=== PATIENT | male | born 1950 | race Caucasian/White ===

== ENCOUNTER → 2022-08-17 08:39 | Outpatient (CLI) | payer OTHER, SELFPAY ==
--- NOTE | 2022-08-17 | DI.CT.S_ITS ---
PROCEDURE: CT KIDNEY URETER BLADDER (KUB) INDICATIONS: HISTORY OF KIDNEY STONES/RIGHT FLANK PAIN TECHNIQUE: Axial sections were acquired from the lung bases to the pubic symphysis. Coronal and sagittal reformats were performed. For radiation dose reduction, the following was used: automated exposure control, adjustment of mA and/or kV according to patient size. COMPARISON: [facility], CT, KIDNEY/ URETER/BLADDER, 09/13/2009, 21:58. [facility] ([place]), CR, XR KUB, 08/04/2022, 11:14. FINDINGS: Image quality: Excellent. Lung bases: Unremarkable. Small hiatal hernia. Heart: There is a cardiac pacemaker. URINARY: Right Kidney: Less than 5 stones measuring up to 2 mm. No hydronephrosis. Right Ureter: No ureteral stones or hydroureter. Left Kidney: Approximately 5-6 stones are seen measuring 1-4 mm. The largest stone demonstrates CT density 311 HU. There is a 1.5 cm exophytic hyperedense nodule in left kidney. Left Ureter: No ureteral stones or hydroureter. Bladder: Normal wall thickness. No stones. ABDOMEN: Liver: Normal size. Mild hepatic steatosis. There are multiple hypodense nodules in liver. The larger lesions are most likely cysts. Many small lesions are too small to further characterize, therefore, considered indeterminate. The nodules are increased in number and size since the last exam dated 09/13/2009. Gallbladder: Unremarkable. Biliary ducts: Unremarkable. Pancreas: Unremarkable. Spleen: Unremarkable. Adrenal Glands: Unremarkable. Stomach and Bowel: Stomach, small bowel loops, and colon are normal in caliber. Diverticulosis without acute diverticulitis. Normal appendix. Peritoneum: No abnormal intraperitoneal fluid. No free air. Ventral Wall: No hernia. Abdominal Nodes: No enlarged retroperitoneal or mesenteric lymph nodes. Vessels: Aorta and inferior vena cava are normal in size. Moderate to severe atherosclerotic calcifications. PELVIS: Pelvic Organs: Prostate is enlarged with mild stranding. Pelvic Nodes: Unremarkable. Miscellaneous: No inguinal hernias are seen. Bones: Mild levoscoliosis. Degenerative changes noted in lumbar spine. IMPRESSION: 1. Nephrolithiasis bilaterally. No hydronephrosis. 2. Enlarged prostate with mild stranding suggesting prostatitis. Recommend clinical correlation. 3. A 1.5 cm hyperdense nodule in left kidney. This could represent a hyperdense cyst. Recommend renal ultrasound for follow-up. 4. Multiple hepatic hypodensities are present, increased since the last exam. Many lesions are likely cysts. There are numerous tiny lesions, too small to further characterize, therefore, indeterminate. If clinically indicated, ultrasound or MRI can be obtained for further evaluation. 5. Diverticulosis without acute diverticulitis. Dictated by: Destiny Cat M.D. on 08/17/2022 at 9:38 Approved by: Destiny Cat M.D. on 08/17/2022 at 9:48
== END ==
PROVIDERS: PCP Family Medicine; Referring Provider Family Medicine; Visit Provider Family Medicine
DX: N20.0 Calculus of kidney (principal); N28.9 Disorder of kidney and ureter, unspecified; K76.9 Liver disease, unspecified; K76.0 Fatty (change of) liver, not elsewhere classified; N40.0 Benign prostatic hyperplasia without lower urinary tract symptoms; R10.9 Unspecified abdominal pain; K44.9 Diaphragmatic hernia without obstruction or gangrene; K57.90 Diverticulosis of intestine, part unspecified, without perforation or abscess without bleeding; Z87.442 Personal history of urinary calculi
CPT/HCPCS: 74176

== ENCOUNTER 2022-09-01 11:05 | Emergency (ER) | payer OTHER, SELFPAY ==
[2022-09-01] VITALS (8 sets, daily range): BP systolic 140–170; BP diastolic 76–84; PULSE 80–89; RESP 16–24; TEMP 36.9; O2SAT 94–99; BMI 29.2
--- NOTE | 2022-09-01 13:43 | ED.ABDPAIN ---
HPI - Abdominal Pain <Andria Serrano PA-C - Last Filed: 09/01/22 16:31> General Chief Complaint: Abdominal Pain Stated Complaint: kidney stones, pain Time Seen by Provider: 09/01/22 13:02 Source: patient Mode of arrival: Ambulatory History of Present Illness HPI narrative: 71-year-old male with past medical history nephrolithiasis, rheumatoid arthritis, hypertension, hyperlipidemia, BPH, status post pacemaker presents to the ED with 2 days of bilateral side pain. Patient was seen by his PCP and a CT scan was obtained on 08/17/2022. The CT showed multiple bilateral kidney stones, none of them obstructing. There was also incidental findings of multiple cysts to the left kidney, liver. It was noted that the nodules are increased in number and size since the last exam which was dated 09/13/2009. Patient states that 2 days after he saw his PCP, patient's pain subsided, he assumed he had passed the kidney stones. Patient states that his pain started again last night when he was asleep, pain is bilateral on his sides. Patient states that he has had kidney stone pain before and it has been 10/10, however this time around it is milder, but since he lives in [facility], he thought it would be safer to come before it got to full-blown pain. Patient has had a lithotripsy and stents put in during prior episodes of nephrolithiasis. Patient denies fever, chills, nausea, vomiting, chest pain, shortness of breath, diarrhea, dysuria, urinary frequency, urinary urgency, lightheadedness, dizziness, syncope. Related Data Home Medications Medication Instructions Recorded Confirmed aspirin 81 mg tablet,delayed 81 mg PO DAILY 08/04/22 08/04/22 release (Adult Aspirin Regimen) famotidine 20 mg tablet 20 mg PO DAILY PRN 08/04/22 08/04/22 hydrochlorothiazide 50 mg tablet 50 mg PO DAILY 08/04/22 08/04/22 lisinopril 10 mg tablet 10 mg PO BID 08/04/22 08/04/22 meloxicam 15 mg tablet 15 mg PO DAILY 08/04/22 08/04/22 metoprolol succinate 25 mg 25 mg PO BID 08/04/22 08/04/22 tablet,extended release 24 hr pantoprazole 40 mg tablet,delayed 40 mg PO DAILY PRN 08/04/22 08/04/22 release rosuvastatin 5 mg tablet 5 mg PO DAILY 08/04/22 08/04/22 tamsulosin 0.4 mg capsule 0.4 mg PO DAILY 08/04/22 08/04/22 Allergies Allergy/AdvReac Type Severity Reaction Status Date / Time No Known Drug Allergies Allergy Verified 08/04/22 10:00 Review of Systems <Andria Serrano PA-C - Last Filed: 09/01/22 16:31> Review of Systems ROS Unobtainable: All systems reviewed & are unremarkable except as noted in HPI and below Constitutional Constitutional: Denies chills, Denies fatigue, Denies fever(s), Denies frequent falls, Denies lethargy and Denies weakness Eyes Eyes: Denies change in vision, Denies eye discharge, Denies irritation and Denies loss of vision ENT Ears, Nose, Mouth, and Throat: Denies change in voice, Denies dizziness, Denies neck pain, Denies sore throat and Denies throat swelling Cardiovascular Cardiovascular: Denies chest pain, Denies irregular heart rhythm, Denies lightheadedness, Denies palpitations, Denies dyspnea, Denies dyspnea on exertion and Denies orthopnea Respiratory Respiratory: Denies cough, Denies dyspnea, Denies dyspnea on exertion and Denies wheezing Gastrointestinal Gastrointestinal: Denies abdominal pain, Denies change in bowel habits, Denies diarrhea, Denies nausea and Denies vomiting Genitourinary Genitourinary: Denies hematuria, Reports flank pain, Denies urinary incontinence and Denies urinary urgency Comments: Bilateral side pain Musculoskeletal Musculoskeletal: Denies back pain, Denies muscle weakness, Denies neck pain, Denies numbness and Denies tingling Integumentary/Breasts Skin/Breast: Denies pruritus, Denies erythema, Denies rash and Denies wounds Neurologic Neurologic: Denies behavioral changes, Denies confusion, Denies dizziness, Denies frequent falls, Denies loss of vision, Denies numbness, Denies tingling and Denies weakness Psychiatric Psychiatric: Denies anxiety, Denies behavioral changes, Denies confusion, Denies depression, Denies homicidal ideation and Denies suicidal ideation Endocrine Endocrine: Denies fatigue, Denies flushing and Denies palpitations Hematologic/Lymphatic Hematologic/Lymphatic: Denies easy bruising Allergic/Immunologic Allergic/Immunologic: Denies urticaria, Denies throat swelling and Denies wheezing Patient History <Andria Serrano PA-C - Last Filed: 09/01/22 16:31> Medical History Rheumatoid arthritis Surgical History S/P placement of cardiac pacemaker Family History Father Cancer Mother Stroke Sister History of heart disease Social History Smoking Status: Never smoker Smoking Status: Never smoker Substance Use Type: does not use Exam <Andria Serrano PA-C - Last Filed: 09/01/22 16:31> Narrative Exam Narrative: Const General:?cooperative, healthy appearing and comfortable HENMT Head:?normal to inspection Ears:?hearing grossly normal bilaterally Nose:?external nose normal Face and sinus:?normal facial exam and sinuses nontender Mouth:?oral mucosae normal Throat:?posterior oropharynx normal Eyes General:?appearance normal, both eyes and all related structures Neck Neck:?normal visual inspection and no lymphadenopathy noted Resp Effort & Inspection:?normal respiratory effort Auscultation:?clear to auscultation bilaterally Cardio Rate:?regular rate Rhythm:?regular rhythm GI Abdomen is soft, nondistended, nontender to palpation. There is no CVA tenderness. Neuro General:?patient alert, patient awake and patient oriented x3 Initial Vital Signs Initial Vital Signs: Vital Signs Temperature 98.5 F 09/01/22 11:25 Pulse Rate 89 09/01/22 11:25 Respiratory Rate 16 09/01/22 11:25 Blood Pressure 155/84 H 09/01/22 11:25 Pulse Oximetry 97 09/01/22 11:25 Oxygen Delivery Method Room Air 09/01/22 11:25 <Lacie Chopra DO - Last Filed: 09/04/22 04:04> Initial Vital Signs Initial Vital Signs: Vital Signs Temperature 98.5 F 09/01/22 11:25 Pulse Rate 89 09/01/22 11:25 Respiratory Rate 16 09/01/22 11:25 Blood Pressure 155/84 H 09/01/22 11:25 Pulse Oximetry 97 09/01/22 11:25 Oxygen Delivery Method Room Air 09/01/22 11:25 Course <Andria Serrano PA-C - Last Filed: 09/01/22 16:31> Orders Ordered: Discontinued Medications Acetaminophen (Acetaminophen 325 Mg Tablet) 975 mg PO NOW ONE Stop: 09/01/22 13:50 Last Admin: 09/01/22 14:01 Dose: 975 mg Documented By: SPF Sodium Chloride (Normal Saline 0.9%) 1,000 mls @ 1,000 mls/hr IV BOLUS ONE Stop: 09/01/22 15:00 Last Infusion: 09/01/22 15:43 Dose: 0 mls/hr Documented By: Admin: 09/01/22 14:35 Dose: 1,000 mls/hr Documented By: SPF Ondansetron HCl (Ondansetron 4 Mg Odt) 4 mg PO NOW PRN PRN Reason: Nausea And Vomiting Ondansetron HCl (Ondansetron 4 Mg/2 Ml Inj) 4 mg IV NOW PRN PRN Reason: Nausea And Vomiting Vital Signs Vital signs: Vital Signs - 8 hr 09/01/22 11:25 09/01/22 13:14 09/01/22 14:03 Temperature 98.5 F Pulse Rate 89 86 86 Respiratory Rate 16 24 Blood Pressure 155/84 H Pulse Oximetry 97 98 94 Oxygen Delivery Method Room Air 09/01/22 14:30 09/01/22 14:30 Temperature Pulse Rate 88 Respiratory Rate 22 Blood Pressure 170/76 H Pulse Oximetry 97 Oxygen Delivery Method Room Air <Lacie Chopra DO - Last Filed: 09/04/22 04:04> Orders Ordered: Discontinued Medications Acetaminophen (Acetaminophen 325 Mg Tablet) 975 mg PO NOW ONE Stop: 09/01/22 13:50 Last Admin: 09/01/22 14:01 Dose: 975 mg Documented By: SPF Sodium Chloride (Normal Saline 0.9%) 1,000 mls @ 1,000 mls/hr IV BOLUS ONE Stop: 09/01/22 15:00 Last Infusion: 09/01/22 15:43 Dose: 0 mls/hr Documented By: Admin: 09/01/22 14:35 Dose: 1,000 mls/hr Documented By: SPF Ondansetron HCl (Ondansetron 4 Mg Odt) 4 mg PO NOW PRN PRN Reason: Nausea And Vomiting Ondansetron HCl (Ondansetron 4 Mg/2 Ml Inj) 4 mg IV NOW PRN PRN Reason: Nausea And Vomiting Vital Signs Vital signs: Vital Signs - 8 hr 09/01/22 11:25 09/01/22 13:14 09/01/22 14:03 Temperature 98.5 F Pulse Rate 89 86 86 Respiratory Rate 16 24 Blood Pressure 155/84 H Pulse Oximetry 97 98 94 Oxygen Delivery Method Room Air 09/01/22 14:30 09/01/22 14:30 Temperature Pulse Rate 88 Respiratory Rate 22 Blood Pressure 170/76 H Pulse Oximetry 97 Oxygen Delivery Method Room Air MDM - Abdominal Pain <Andria Serrano PA-C - Last Filed: 09/01/22 16:31> Lab Data 09/01/22 13:46 09/01/22 13:46 Labs: Lab Results 09/01/22 09/01/22 09/01/22 Range/Units 13:28 13:46 13:46 WBC 10.6 (4.5-11.0) X10^3/uL RBC 5.97 H (4.5-5.9) X10^6/uL Hgb 18.3 H (13.5-17.5) g/dL Hct 52.4 (41-53) % MCV 87.9 (80-100) fL MCH 30.7 (26-34) PG MCHC 34.9 (30-36) % RDW 14.6 (11.6-14.8) % Plt Count 157 (150-400) X10^3/uL Neut % (Auto) 79.8 H (50-75) % Lymph % (Auto) 11.9 L (25-40) % Thomas % (Auto) 6.7 (3-14) % Eos % (Auto) 0.3 L (2-4) % Baso % (Auto) 1.3 (0-2) % Neut # (Auto) 8400 H (8244-9642) /uL Lymph # (Auto) 1300 (8594-0828) /uL Thomas # (Auto) 700 (0-900) /uL Eos # (Auto) 0 (0-450) /uL Baso # (Auto) 100 (0-100) /uL Sodium 138 (137-145) mmol/L Potassium 4.1 (3.4-5.1) mmol/L Chloride 101 (98-107) mmol/L Carbon Dioxide 28 (22-32) mmol/L BUN 20 (9-20) mg/dL Creatinine 1.33 H (0.66-1.25) mg/dL Estimated GFR 58 L (>60) mL/min BUN/Creatinine Ratio 15.0 (6-22) Glucose 108 (80-110) mg/dL Calcium 9.5 (8.4-10.2) mg/dL Total Bilirubin 1.4 H (0.2-1.3) mg/dL AST 31 (17-59) IU/L ALT 36 (<50) IU/L Alkaline Phosphatase 48 (38-126) U/L Total Protein 7.6 (6.3-8.2) g/dL Albumin 4.5 (3.5-5.0) g/dL Globulin 3.1 (1.7-4.1) g/dL Albumin/Globulin Ratio 1.5 (1.0-2.8) Lipase 83 (23-300) U/L Urine Color Yellow Urine Appearance Clear Urine pH 6.0 (4.5-8.0) Ur Specific [place] 1.020 (1.000-1.035) Urine Protein Negative (Negative) Urine Glucose (UA) Negative (Negative) g/dL Urine Ketones Negative (NEGATIVE) Urine Occult Blood Trace-intact (Negative) Urine Nitrate Negative (Negative) Urine Bilirubin Negative (NEGATIVE) Urine Urobilinogen 0.2 (0.2) E.U./dL Ur Leukocyte Esterase Negative (NEGATIVE) Urine RBC 0-1/hpf (0-5/HPF) Urine WBC 0-1/hpf (0-5/HPF) Ur Squamous Epith Cells 0-1 /hpf (0-5/HPF) Urine Bacteria Occasional (0-1) (None) Ur Culture Indicated? Cult not indicated MDM Narrative Medical decision making narrative: 71-year-old male with past medical history nephrolithiasis, rheumatoid arthritis, hypertension, hyperlipidemia, BPH, status post pacemaker presents to the ED with 2 days of bilateral side pain. Concern for nephrolithiasis versus UTI versus pyelonephritis versus other intra-abdominal pathology versus other. Will obtain labs, UA, CT abdomen pelvis. Will give Tylenol for pain. Will reassess. Patient's pain was well controlled with Tylenol. UA without UTI, labs within normal limits. CT abdomen pelvis shows multiple bilateral kidney stones, none of which are obstructing. Discussed findings with patient. Patient agrees to follow-up with his urologist for further evaluation. ED return precautions were discussed with patient. Patient verbalized understanding. Medical records reviewed: Yes <Lacie Chopra, DO - Last Filed: 09/04/22 04:04> Lab Data Labs: Lab Results 09/01/22 09/01/22 09/01/22 Range/Units 13:28 13:46 13:46 WBC 10.6 (4.5-11.0) X10^3/uL RBC 5.97 H (4.5-5.9) X10^6/uL Hgb 18.3 H (13.5-17.5) g/dL Hct 52.4 (41-53) % MCV 87.9 (80-100) fL MCH 30.7 (26-34) PG MCHC 34.9 (30-36) % RDW 14.6 (11.6-14.8) % Plt Count 157 (150-400) X10^3/uL Neut % (Auto) 79.8 H (50-75) % Lymph % (Auto) 11.9 L (25-40) % Thomas % (Auto) 6.7 (3-14) % Eos % (Auto) 0.3 L (2-4) % Baso % (Auto) 1.3 (0-2) % Neut # (Auto) 8400 H (2013-8414) /uL Lymph # (Auto) 1300 (6670-9467) /uL Thomas # (Auto) 700 (0-900) /uL Eos # (Auto) 0 (0-450) /uL Baso # (Auto) 100 (0-100) /uL Sodium 138 (137-145) mmol/L Potassium 4.1 (3.4-5.1) mmol/L Chloride 101 (98-107) mmol/L Carbon Dioxide 28 (22-32) mmol/L BUN 20 (9-20) mg/dL Creatinine 1.33 H (0.66-1.25) mg/dL Estimated GFR 58 L (>60) mL/min BUN/Creatinine Ratio 15.0 (6-22) Glucose 108 (80-110) mg/dL Calcium 9.5 (8.4-10.2) mg/dL Total Bilirubin 1.4 H (0.2-1.3) mg/dL AST 31 (17-59) IU/L ALT 36 (<50) IU/L Alkaline Phosphatase 48 (38-126) U/L Total Protein 7.6 (6.3-8.2) g/dL Albumin 4.5 (3.5-5.0) g/dL Globulin 3.1 (1.7-4.1) g/dL Albumin/Globulin Ratio 1.5 (1.0-2.8) Lipase 83 (23-300) U/L Urine Color Yellow Urine Appearance Clear Urine pH 6.0 (4.5-8.0) Ur Specific [place] 1.020 (1.000-1.035) Urine Protein Negative (Negative) Urine Glucose (UA) Negative (Negative) g/dL Urine Ketones Negative (NEGATIVE) Urine Occult Blood Trace-intact (Negative) Urine Nitrate Negative (Negative) Urine Bilirubin Negative (NEGATIVE) Urine Urobilinogen 0.2 (0.2) E.U./dL Ur Leukocyte Esterase Negative (NEGATIVE) Urine RBC 0-1/hpf (0-5/HPF) Urine WBC 0-1/hpf (0-5/HPF) Ur Squamous Epith Cells 0-1 /hpf (0-5/HPF) Urine Bacteria Occasional (0-1) (None) Ur Culture Indicated? Cult not indicated Discharge Plan Departure Patient Disposition: Home Clinical Impression: Abdominal pain Instructions: DI for Kidney Stones, DI for Abdominal Pain-Adult Activity Restrictions/Additional Instructions: You were evaluated in the ED today for bilateral side pain. Your labs, urine were normal. Your CT did show multiple kidney stones, however none of them were obstructing an unlikely cause of your symptoms. Please follow-up with the urologist as soon as possible for further evaluation. Return to the ED if your pain worsens, you experience persistent vomiting, fever, chills. Prescriptions: No Action aspirin [Adult Aspirin Regimen] 81 mg tablet,delayed release (DR/EC) 81 mg PO DAILY lisinopril 10 mg tablet 10 mg PO BID metoprolol succinate 25 mg tablet extended release 24 hr 25 mg PO BID rosuvastatin 5 mg tablet 5 mg PO DAILY tamsulosin 0.4 mg capsule 0.4 mg PO DAILY meloxicam 15 mg tablet 15 mg PO DAILY hydrochlorothiazide 50 mg tablet 50 mg PO DAILY pantoprazole 40 mg tablet,delayed release (DR/EC) 40 mg PO DAILY PRN famotidine 20 mg tablet 20 mg PO DAILY PRN Referrals: Lynnette Bird MD [Primary Care Provider] - Stand Alone Forms: Patient Portal/API <Lacie Chopra DO - Last Filed: 09/04/22 04:04> Cosign ED Attending Erikaature Attestation: I was immediately available in the department for consultation. Documentation has been reviewed.
[2022-09-01 13:57] LABS: Add Manual Diff / Slide Review NO; Basophils Absolute Auto 100 /uL (0-100); Basophils Percent Auto 1.3 % (0-2); Eosinophils Absolute Auto 0 /uL (0-450); Eosinophils Percent Auto 0.3 % (2-4); Hematocrit 52.4 % (41-53); Hemoglobin 18.3 g/dL (13.5-17.5); Lymphocytes Absolute Auto 1300 /uL (1100-4500); Lymphocytes Percent Auto 11.9 % (25-40); Mean Corpuscular HGB Conc 34.9 % (30-36); Mean Corpuscular Hemoglobin 30.7 PG (26-34); Mean Corpuscular Volume 87.9 fL (80-100); Monocytes Absolute Auto 700 /uL (0-900); Monocytes Percent Auto 6.7 % (3-14); Neutrophils Absolute Auto 8400 /uL (1500-7000); Neutrophils Percent Auto 79.8 % (50-75); Platelet Count 157 X10^3/uL (150-400); Red Blood Cell Count 5.97 X10^6/uL (4.5-5.9); Red Cell Distribution Width 14.6 % (11.6-14.8); White Blood Cell Count 10.6 X10^3/uL (4.5-11.0)
[2022-09-01 13:58] LABS: Appearance Urine UA CLEAR; Bilirubin Urine UA NEGATIVE (NEGATIVE); Color Urine UA YELLOW; Glucose Urine UA NEGATIVE (Negative); Ketones Urine UA NEGATIVE (NEGATIVE); Leukocyte Esterase Urine UA NEGATIVE (NEGATIVE); Nitrite Urine UA NEGATIVE (Negative); Occult Blood Urine UA TRACE-INTACT (Negative); Protein Urine UA NEGATIVE (Negative); Urobilinogen Urine UA 0.2 E.U./dL (0.2)
[2022-09-01] MEDS: ACETAMINOPHEN 325 MG TABLET 975 MG PO (14:01)
[2022-09-01 14:11] LABS: Alanine Aminotransferase 36 IU/L (<50); Albumin 4.5 g/dL (3.5-5.0); Albumin Globulin Ratio 1.5 (1.0-2.8); Alkaline Phosphatase 48 U/L (38-126); Aspartate Aminotransferase 31 IU/L (17-59); Bilirubin Total 1.4 mg/dL (0.2-1.3); Blood Urea Nitrogen 20 mg/dL (9-20); Calcium 9.5 mg/dL (8.4-10.2); Carbon Dioxide 28 mmol/L (22-32); Chloride 101 mmol/L (98-107); Estimated Glomerular Filt Rate 58 mL/min (>60); Globulin 3.1 g/dL (1.7-4.1); Glucose 108 mg/dL (80-110); HEMOLYSIS 17 (0-50); Lipase 83 U/L (23-300); Potassium 4.1 mmol/L (3.4-5.1); Sodium 138 mmol/L (137-145); Total Protein 7.6 g/dL (6.3-8.2)
--- NOTE | 2022-09-01 14:19 | DI.CT.S_ITS ---
PROCEDURE: CT ABDOMEN PELVIS W CON INDICATIONS: bilateral flank, side px; hx kidney stones, liver/kidn cysts TECHNIQUE: After the administration of intravenous contrast, axial sections acquired from the lung bases to the pubic symphysis. Coronal and sagittal reformats were performed. For radiation dose reduction, the following was used: automated exposure control, adjustment of mA and/or kV according to patient size. COMPARISON: [facility], CT, CT KIDNEY URETER BLADDER (KUB), 08/17/2022, 8:53. None. FINDINGS: Image quality: Excellent. Lung bases: Unremarkable. Heart: No significant findings. ABDOMEN: Liver: Multiple hepatic cysts, predominantly within the left hepatic lobe. Gallbladder: Unremarkable. Biliary ducts: Unremarkable. Pancreas: Unremarkable. Spleen: Unremarkable. Adrenal Glands: Unremarkable. Kidneys and Ureters: No hydronephrosis. No change in exophytic high density focus protruding laterally from the superior pole left kidney measuring roughly 17 mm diameter. Small nonobstructing bilateral renal calculi are present, as before. Stomach and Bowel: Stomach, small bowel loops, and colon are unremarkable. Normal appendix. Peritoneum: No abnormal intraperitoneal fluid. No free air. Ventral Wall: No hernias. Abdominal Nodes: No retroperitoneal or mesenteric adenopathy by size criteria. Vessels: Aorta and inferior vena cava are normal in size. PELVIS: Pelvic Organs: Unremarkable. Bladder: Decompressed. Pelvic Nodes: No enlarged lymph nodes. Miscellaneous: No hernias are seen. Bones: Unremarkable. IMPRESSION: 1. Nonobstructing bilateral renal calculi. 2. Normal appendix. Dictated by: Ilia Martin M.D. on 09/01/2022 at 14:48 Approved by: Ilia Martin M.D. on 09/01/2022 at 14:51
[2022-09-01 14:30] LABS: Bacteria Urine Occasional (0-1); Culture Indicated Urine Cult Not Indicated; RBC Urine 0-1/HPF (0-5/HPF); Squamous Epithelial Cell Urine 0-1 /HPF (0-5/HPF); WBC Urine 0-1/HPF (0-5/HPF)
[2022-09-01] MEDS: SODIUM CHLORIDE 0.9% 1,000 ML 1000 ML IV (14:35)
== END 2022-09-01 16:13 | disposition home or self-care (01) ==
PROVIDERS: Emergency Medicine; Emergency Provider Student in an Organized Health Care Education/Training Program; PCP Family Medicine
DX: R10.9 Unspecified abdominal pain (principal); Z95.0 Presence of cardiac pacemaker
CPT/HCPCS: 36415; 74177; 80053; 81001; 83690; 85025; 99284

== ENCOUNTER → 2023-02-22 08:39 | Outpatient (CLI) | payer MEDICARE, SELFPAY ==
[2023-02-22 19:38] LABS: Add Manual Diff / Slide Review NO; Basophils Absolute Auto 0 /uL (0-100); Basophils Percent Auto 0.5 % (0-2); Eosinophils Absolute Auto 200 /uL (0-450); Eosinophils Percent Auto 2.5 % (2-4); Hematocrit 50.8 % (41-53); Hemoglobin 17.7 g/dL (13.5-17.5); Lymphocytes Absolute Auto 2000 /uL (1100-4500); Lymphocytes Percent Auto 22.6 % (25-40); Mean Corpuscular HGB Conc 34.8 % (30-36); Mean Corpuscular Hemoglobin 30.9 PG (26-34); Mean Corpuscular Volume 88.9 fL (80-100); Monocytes Absolute Auto 800 /uL (0-900); Monocytes Percent Auto 8.9 % (3-14); Neutrophils Absolute Auto 5800 /uL (1500-7000); Neutrophils Percent Auto 65.5 % (50-75); Platelet Count 130 X10^3/uL (150-400); Red Blood Cell Count 5.72 X10^6/uL (4.5-5.9); Red Cell Distribution Width 13.8 % (11.6-14.8); White Blood Cell Count 8.9 X10^3/uL (4.5-11.0)
[2023-02-22 19:57] LABS: BUN Creatinine Ratio 17.7 (6-22); Blood Urea Nitrogen 22 mg/dL (9-20); Calcium 9.4 mg/dL (8.4-10.2); Carbon Dioxide 30 mmol/L (22-32); Chloride 102 mmol/L (98-107); Cholesterol 140 mg/dL (140-199); Estimated Glomerular Filt Rate > 60 mL/min (>60); Glucose 114 mg/dL (80-110); HDL Cholesterol 28 mg/dL (40-60); HEMOLYSIS < 15 (0-50); LDL Cholesterol Calculated 71 mg/dL (<100); Potassium 3.9 mmol/L (3.4-5.1); Sodium 139 mmol/L (137-145); Triglycerides 204 mg/dL (35-150)
[2023-02-22 20:24] LABS: Prostate Specific Antigen 0.092 ng/mL (0.10-4.00); TSH w/ Reflex to FT4 0.67 uIU/mL (0.47-4.68)
[2023-02-22 20:41] LABS: Hep C Virus Ab w/Reflex Quant NEGATIVE s/c (NEGATIVE)
== END ==
PROVIDERS: PCP Family Medicine; Visit Provider Family Medicine
DX: I25.2 Old myocardial infarction (principal); E78.2 Mixed hyperlipidemia; I10 Essential (primary) hypertension; N40.1 Benign prostatic hyperplasia with lower urinary tract symptoms; N13.8 Other obstructive and reflux uropathy; N20.0 Calculus of kidney; Z11.59 Encounter for screening for other viral diseases
CPT/HCPCS: 80048; 80061; 84153; 84443; 85025; 86803

== ENCOUNTER → 2023-09-07 08:03 | Outpatient (CLI) | payer MEDICARE, SELFPAY ==
[2023-09-07 19:23] LABS: Alanine Aminotransferase 33 IU/L (<50); Albumin 4.4 g/dL (3.5-5.0); Albumin Globulin Ratio 1.8 (1.0-2.8); Alkaline Phosphatase 58 U/L (38-126); Aspartate Aminotransferase 33 IU/L (17-59); BUN Creatinine Ratio 17.6 (6-22); Bilirubin Total 1.1 mg/dL (0.2-1.3); Blood Urea Nitrogen 25 mg/dL (9-20); Calcium 9.7 mg/dL (8.4-10.2); Carbon Dioxide 29 mmol/L (22-32); Chloride 104 mmol/L (98-107); Cholesterol 123 mg/dL (140-199); Estimated Glomerular Filt Rate 53 mL/min (>60); Globulin 2.5 g/dL (1.7-4.1); Glucose 108 mg/dL (80-110); HDL Cholesterol 32 mg/dL (40-60); HEMOLYSIS < 15 (0-50); LDL Cholesterol Calculated 57 mg/dL (<100); Potassium 3.8 mmol/L (3.4-5.1); Sodium 142 mmol/L (137-145); Total Protein 6.9 g/dL (6.3-8.2); Triglycerides 171 mg/dL (35-150)
[2023-09-07 19:26] LABS: Add Manual Diff / Slide Review NO; Basophils Absolute Auto 100 /uL (0-100); Basophils Percent Auto 0.6 % (0-2); Eosinophils Absolute Auto 200 /uL (0-450); Eosinophils Percent Auto 2.9 % (2-4); Hematocrit 52.6 % (41-53); Hemoglobin 18.3 g/dL (13.5-17.5); Lymphocytes Absolute Auto 2100 /uL (1100-4500); Lymphocytes Percent Auto 26.4 % (25-40); Mean Corpuscular HGB Conc 34.8 % (30-36); Mean Corpuscular Hemoglobin 31.3 PG (26-34); Mean Corpuscular Volume 89.9 fL (80-100); Monocytes Absolute Auto 700 /uL (0-900); Monocytes Percent Auto 8.7 % (3-14); Neutrophils Absolute Auto 5000 /uL (1500-7000); Neutrophils Percent Auto 61.4 % (50-75); Platelet Count 123 X10^3/uL (150-400); Red Blood Cell Count 5.85 X10^6/uL (4.5-5.9); White Blood Cell Count 8.1 X10^3/uL (4.5-11.0)
[2023-09-07 19:50] LABS: Prostate Specific Antigen Scrn 0.085 ng/mL (0.1-4.0)
== END ==
PROVIDERS: PCP Family Medicine; Visit Provider Family Medicine
DX: Z12.5 Encounter for screening for malignant neoplasm of prostate (principal); E78.2 Mixed hyperlipidemia; I10 Essential (primary) hypertension; Z85.46 Personal history of malignant neoplasm of prostate
CPT/HCPCS: 80053; 80061; 85025; G0103

== ENCOUNTER → 2024-03-17 08:44 | Outpatient (CLI) | payer MEDICARE, SELFPAY ==
[2024-03-17 17:06] LABS: BUN Creatinine Ratio 19.2 (6-22); Blood Urea Nitrogen 24 mg/dL (9-20); Calcium 9.5 mg/dL (8.4-10.2); Carbon Dioxide 28 mmol/L (22-32); Chloride 102 mmol/L (98-107); Cholesterol 127 mg/dL (140-199); Estimated Glomerular Filt Rate > 60 mL/min (>60); Glucose 97 mg/dL (80-110); HDL Cholesterol 29 mg/dL (40-60); HEMOLYSIS 40 (0-50); LDL Cholesterol Calculated 71 mg/dL (<100); Potassium 3.7 mmol/L (3.4-5.1); Sodium 138 mmol/L (137-145); Triglycerides 134 mg/dL (35-150)
[2024-03-17 17:12] LABS: Add Manual Diff / Slide Review NO; Basophils Absolute Auto 0 /uL (0-100); Basophils Percent Auto 0.4 % (0-2); Eosinophils Absolute Auto 200 /uL (0-450); Eosinophils Percent Auto 2.5 % (2-4); Hematocrit 54.9 % (41-53); Hemoglobin 18.5 g/dL (13.5-17.5); Lymphocytes Absolute Auto 1900 /uL (1100-4500); Lymphocytes Percent Auto 22.7 % (25-40); Mean Corpuscular HGB Conc 33.8 % (30-36); Mean Corpuscular Hemoglobin 30.2 PG (26-34); Mean Corpuscular Volume 89.4 fL (80-100); Monocytes Absolute Auto 700 /uL (0-900); Neutrophils Absolute Auto 5400 /uL (1500-7000); Neutrophils Percent Auto 66.4 % (50-75); Platelet Count 122 X10^3/uL (150-400); Red Blood Cell Count 6.14 X10^6/uL (4.5-5.9); Red Cell Distribution Width 14.3 % (11.6-14.8); White Blood Cell Count 8.2 X10^3/uL (4.5-11.0)
[2024-03-17 17:37] LABS: Prostate Specific Antigen 0.081 ng/mL (0.10-4.00)
== END ==
PROVIDERS: PCP Family Medicine; Visit Provider Family Medicine
DX: I25.10 Atherosclerotic heart disease of native coronary artery without angina pectoris (principal); N18.31 Chronic kidney disease, stage 3a; R79.89 Other specified abnormal findings of blood chemistry; Z85.46 Personal history of malignant neoplasm of prostate; Z95.5 Presence of coronary angioplasty implant and graft; Z95.0 Presence of cardiac pacemaker
CPT/HCPCS: 80048; 80061; 84153; 85025

== ENCOUNTER 2024-10-19 10:06 | Emergency (ER) | payer MEDICARE, SELFPAY ==
[2024-10-19] VITALS (8 sets, daily range): BP systolic 117–151; BP diastolic 57–71; PULSE 70–80; RESP 15; TEMP 37.1; O2SAT 96–99
--- NOTE | 2024-10-19 10:05 | DI.CT.S_ITS ---
PROCEDURE: CT KIDNEY URETER BLADDER (KUB) INDICATIONS: flank pain TECHNIQUE: Axial sections were acquired from the lung bases to the pubic symphysis. Coronal and sagittal reformats were performed. For radiation dose reduction, the following was used: automated exposure control, adjustment of mA and/or kV according to patient size. COMPARISON: CT, CT ABDOMEN PELVIS W CON, 09/01/2022, 14:26. FINDINGS: Image quality: Diagnostic. Lower Chest: No significant findings. URINARY: Right Kidney: Punctate calculus lower 3rd collecting system, nonobstructive. No hydronephrosis. Right Ureter: Normal. Left Kidney: Punctate calculus lower 3rd collecting system, nonobstructive. Mild to moderate hydronephrosis Left Ureter: [id number] hydroureter extending to the tip of the ureter at the orifice. At this point there is a 2 mm calculus. Bladder: Normal wall thickness. No stones. ABDOMEN: Liver: No contour-deforming solid mass. Gallbladder: No radiopaque gallstones or wall thickening. Biliary ducts: No biliary dilation. Pancreas: No ductal dilation. Spleen: Size is within normal limits. Adrenal Glands: No adrenal nodules. Stomach and Bowel: Normal colonic caliber, without significant wall thickening. Peritoneum: No abnormal intraperitoneal fluid. No free air. Ventral Wall: No hernia. Abdominal Nodes: No enlarged retroperitoneal or mesenteric lymph nodes. Vessels: Aorta and inferior vena cava are normal in size. PELVIS: Pelvic Organs: Unremarkable. Pelvic Nodes: Unremarkable. Miscellaneous: No inguinal hernias are seen. Bones: Unremarkable. IMPRESSION: Each kidney contains a nonobstructive punctate calculus within its lower 3rd collecting system. No hydronephrosis or hydroureter on the right. [id number] left hydronephrosis and hydroureter extending to a 2 mm calculus literally at the orifice of the far distal left ureter superimposed on the bladder lumen. A stone of this small size generally will pass without urologic intervention. Dictated by: Sergey Savage M.D. on 10/19/2024 at 10:46 Approved by: Sergey Svaage M.D. on 10/19/2024 at 10:51
[2024-10-19 10:34] LABS: Appearance Urine UA CLOUDY; Bilirubin Urine UA NEGATIVE (NEGATIVE); Color Urine UA YELLOW; Glucose Urine UA NEGATIVE (Negative); Ketones Urine UA NEGATIVE (NEGATIVE); Leukocyte Esterase Urine UA NEGATIVE (NEGATIVE); Nitrite Urine UA NEGATIVE (Negative); Occult Blood Urine UA 3+ (Negative); Protein Urine UA 2+ (Negative); Specific Gravity Urine UA 1.025 (1.000-1.035); pH Urine UA 5.5 (4.5-8.0)
[2024-10-19 10:48] LABS: Bacteria Urine None Seen; Culture Indicated Urine Cult Not Indicated; RBC Urine >100/HPF (0-5/HPF); Squamous Epithelial Cell Urine 1-5 /HPF (0-5/HPF); Urine Volume 10mL (spun); WBC Urine None Seen (0-5/HPF)
--- NOTE | 2024-10-19 11:02 | PC.NURSE ---
Pt reports that pain has returned. Medicated with PRN for pain.
[2024-10-19] MEDS: HYDROMORPHONE 0.5 MG INJ IV ×2 (11:04→11:28)
[2024-10-19] MEDS: SODIUM CHLORIDE 0.9% 1,000 ML 1000 ML IV (11:05)
--- NOTE | 2024-10-19 11:29 | PC.NURSE ---
Pt continues to have 5/10 flank pain , medicated with PRN for pain.
--- NOTE | 2024-10-19 12:01 | PC.NURSE ---
Pt lying back in [facility]. Eyes closed. Appears in NAD.
--- NOTE | 2024-10-19 12:03 | ED.BACK ---
HPI - Back Pain/Injury General Chief Complaint: Back Pain/Injury Stated Complaint: kidney stone Time Seen by Provider: 10/19/24 10:11 Source: EMS History of Present Illness HPI Narrative: 73-year-old gentleman with a history of coronary artery disease, prior stents, pacemaker, hernia repair, hypertension hyperlipidemia flown over from [facility] this morning with complaints of acute left flank pain onset early this morning, described as 10/10 pain. Does have a history of kidney stones is currently on Flomax daily, he has been able to pass proximally for stones without intervention, 1 required lithotripsy. He is not complaining of chest pain or palpitations. When you went to bed last night he was feeling well in his usual state of health. Related Data Home Medications ?Medication ?Instructions ?Recorded ?Confirmed aspirin 81 mg tablet,delayed 81 mg PO DAILY 08/04/22 10/19/24 release (Adult Aspirin Regimen) omeprazole 20 mg capsule,delayed 20 mg PO DAILY 02/24/24 10/19/24 release valsartan 40 mg tablet 40 mg PO DAILY 02/24/24 10/19/24 Previous Rx's ?Medication ?Instructions ?Recorded tamsulosin 0.4 mg capsule 0.4 mg PO DAILY #90 caps 03/06/24 rosuvastatin 10 mg tablet 10 mg PO DAILY #90 tabs 03/31/24 hydrochlorothiazide 50 mg tablet 50 mg PO DAILY #90 tabs 05/22/24 meloxicam 15 mg tablet 15 mg PO DAILY #90 tabs 07/10/24 metoprolol succinate 25 mg 25 mg PO BID #180 tabs 10/02/24 tablet,extended release 24 hr oxycodone 5 mg tablet 5 mg PO Q6H PRN pain #14 tabs 10/19/24 Allergies Allergy/AdvReac Type Severity Reaction Status Date / Time lisinopril Allergy Mild Cough Verified 10/19/24 10:29 Patient History Medical History (Updated 10/19/24 @ 12:38 by Vanessa Morfin MD) Sleep apnea Bilateral kidney stones Hyperlipidemia, mixed Hypertension, essential History of prostate cancer GERD (gastroesophageal reflux disease) History of [place] (myocardial infarction) CAD (coronary artery disease) CKD stage 3a, GFR 45-59 ml/min Surgical History (Updated 10/19/24 @ 12:21 by Vanessa Morfin MD) H/O inguinal hernia repair H/O umbilical hernia repair S/P placement of cardiac pacemaker Family History Father Cancer Mother Stroke Sister History of heart disease Social History Smoking Status: Never smoker Smoking Status: Never smoker Exam Initial Vital Signs Initial Vital Signs: Vital Signs Temperature 98.7 F 10/19/24 10:14 Pulse Rate 75 10/19/24 10:14 Respiratory Rate 15 10/19/24 10:14 Blood Pressure 151/71 H 10/19/24 10:14 Pulse Oximetry 98 10/19/24 10:14 Oxygen Delivery Method Room Air 10/19/24 10:14 General: Alert appropriate in no acute distress Respiratory: Able to speak in full sentences, no obvious respiratory distress Abdomen: No abdominal tenderness., left flank pain without reproducible tenderness to palpation. Skin: No obvious rashes, warm and dry Neurologic: Grossly intact no obvious asymmetries or abnormalities Psych: appropriate insight and affect, cooperative Course Orders Ordered: ED Orders 10/19/24 10:05 CT kidney ureter bladder (KUB) Stat 10/19/24 10:15 Urinalysis and Microscopic Stat Hydromorphone HCl (Hydromorphone 0.5 Mg Inj) 0.5 mg IV Q15MIN PRN PRN Reason: Pain, Last Admin: 10/19/24 11:28 Dose: 0.5 mg Documented By: Admin: 10/19/24 11:04 Dose: 0.5 mg Documented By: Discontinued Medications Sodium Chloride (Normal Saline 0.9%) 1,000 mls @ 1,000 mls/hr IV BOLUS ONE Stop: 10/19/24 11:03 Last Infusion: 10/19/24 12:01 Dose: Infused Documented By: Admin: 10/19/24 11:05 Dose: 1,000 mls/hr Documented By: Ketorolac Tromethamine (Ketorolac 30 Mg/Ml Vial) 15 mg IV NOW ONE Stop: 10/19/24 10:05 Last Admin: 10/19/24 11:06 Dose: Not Given Documented By: Ondansetron HCl (Ondansetron 4 Mg/2 Ml Inj) 4 mg IV NOW ONE Stop: 10/19/24 10:05 Last Admin: 10/19/24 11:06 Dose: Not Given Documented By: Vital Signs Vital signs: Vital Signs - 8 hr 10/19/24 10:14 Temperature 98.7 F Pulse Rate 75 Respiratory Rate 15 Blood Pressure 151/71 H Pulse Oximetry 98 Oxygen Delivery Method Room Air MDM - Back Pain/Injury Lab Data Labs: Lab Results 10/19/24 Range/Units 10:15 Urine Color Yellow Urine Appearance Cloudy Urine pH 5.5 (4.5-8.0) Ur Specific [place] 1.025 (1.000-1.035) Urine Protein 2+ H (Negative) Urine Glucose (UA) Negative (Negative) g/dL Urine Ketones Negative (NEGATIVE) Urine Occult Blood 3+ H (Negative) Urine Nitrate Negative (Negative) Urine Bilirubin Negative (NEGATIVE) Urine Urobilinogen 1.0 (0.2) E.U./dL Ur Leukocyte Esterase Negative (NEGATIVE) Urine RBC >100/hpf H (0-5/HPF) Urine WBC None seen (0-5/HPF) Ur Squamous Epith Cells 1-5 /hpf (0-5/HPF) Urine Bacteria None seen (None) Ur Culture Indicated? Cult not indicated Vol Urine Centrifuged 10ml (spun) MDM Narrative Medical decision making narrative: CC: Acute right flank pain starting at 3:00 a.m. Complicating co-morbidities: Prior kidney stones Data collected from: patient, air lift grew Social determinants of health that may influence the patients condition: Patient lives on [place] Differential considered: Kidney stone, pyelonephritis, AAA, constipation Exam documented above, pertinent findings include: Left flank pain, he does not have an acute surgical abdomen, remainder of exam is benign Imaging studies independently reviewed: CT scan shows left-sided [id number] hydronephrosis and hydroureter extending to a 2 mm calculus in the far distal left ureter superimposed on the bladder lumen. Right side shows no hydronephrosis. There are punctate calculi nonobstructing in both kidneys Treatments: 1 L of saline, you received Toradol and Dilaudid prior to arrival Discussion: 73-year-old gentleman with a 2 mm stone that all has almost completely traversed the left ureter. Pain is significantly improved and he feels that it is tolerable at this point. He currently is on Flomax, hydrochlorothiazide, drinks no soda, makes a point of drinking extra fluids and avoiding foods that can be associated with kidney stones. He does not currently have a urologist, his recent prostate radiotherapy treatment was in [place] and he has not had kidney stones for the past number of years. Suggested that he continue all of his current medications and follow up with his primary care physician. He will be given small course of oxycodone to use for pain control as needed. He is already on meloxicam so does not take additional nonsteroidals. We reviewed reasons to return to the emergency department. There was no indication for further workup or hospitalization today. Discharge Plan Departure Patient Disposition: Home Clinical Impression: Ureterolithiasis, Bilateral kidney stones Instructions: DI for Kidney Stones Activity Restrictions/Additional Instructions: Thank you for coming in today You do have a 2 mm kidney stone on the left side. It looks like it is almost entirely passed into your bladder at the time of the CT scan. You are doing all of the right things to try and prevent stones and further problems, please do continue your Flomax, hydrochlorothiazide, plenty of fluids and avoiding foods that can increase your risk for kidney stones You can continue using your meloxicam for pain. You can add Tylenol to this is needed. I have given you a prescription for oxycodone, a narcotic, for severe pain. If you do end up needing the narcotic please add a stool softener as narcotics will always cause constipation Of you find that you are again experiencing 10/10 pain it is appropriate to return to the emergency department Prescriptions: New oxycodone 5 mg tablet 5 mg PO Q6H PRN (Reason: pain) Qty: 14 0RF No Action tamsulosin 0.4 mg capsule 0.4 mg PO DAILY Qty: 90 3RF rosuvastatin 10 mg tablet 10 mg PO DAILY Qty: 90 3RF hydrochlorothiazide 50 mg tablet 50 mg PO DAILY Qty: 90 1RF meloxicam 15 mg tablet 15 mg PO DAILY Qty: 90 1RF metoprolol succinate 25 mg tablet extended release 24 hr 25 mg PO BID Qty: 180 0RF aspirin [Adult Aspirin Regimen] 81 mg tablet,delayed release (DR/EC) 81 mg PO DAILY omeprazole 20 mg capsule,delayed release(DR/EC) 20 mg PO DAILY valsartan 40 mg tablet 40 mg PO DAILY Referrals: Wesley Atkinson MD [Primary Care Provider, Family Practice] Stand Alone Forms: Patient Portal/API
[2024-10-19] MEDS: OXYCODONE/ACETAMINOPHEN 5/325 TABLET 1 TAB PO (12:48)
== END 2024-10-19 12:56 | disposition home or self-care (01) ==
PROVIDERS: Emergency Provider Emergency Medicine; PCP Family Medicine
DX: N13.2 Hydronephrosis with renal and ureteral calculous obstruction (principal)
CPT/HCPCS: 36415; 74176; 81001; 96361; 96374; 99284; J1171

== ENCOUNTER → 2025-01-11 08:49 | Outpatient (CLI) | payer MEDICARE, SELFPAY ==
[2025-01-11 19:26] LABS: Add Manual Diff / Slide Review NO; Hematocrit 50.6 % (41-53); Hemoglobin 17.8 g/dL (13.5-17.5); Lymphocytes Absolute Auto 1900 /uL (1100-4500); Mean Corpuscular HGB Conc 35.1 % (30-36); Mean Corpuscular Hemoglobin 31.2 PG (26-34); Mean Corpuscular Volume 88.7 fL (80-100); Platelet Count 107 X10^3/uL (150-400)
[2025-01-11 19:39] LABS: Blood Urea Nitrogen 22 mg/dL (9-20); Calcium 9.2 mg/dL (8.4-10.2); Carbon Dioxide 28 mmol/L (22-32); Chloride 102 mmol/L (98-107); Cholesterol 102 mg/dL (140-199); Estimated Glomerular Filt Rate 57 mL/min (>60); Glucose 111 mg/dL (70-99); HDL Cholesterol 30 mg/dL (40-60); HEMOLYSIS 43 (0-50); Potassium 3.8 mmol/L (3.4-5.1); Sodium 140 mmol/L (137-145); Triglycerides 148 mg/dL (35-150)
== END ==
PROVIDERS: PCP Family Medicine; Visit Provider Family Medicine
DX: I25.10 Atherosclerotic heart disease of native coronary artery without angina pectoris (principal); N20.0 Calculus of kidney; E78.5 Hyperlipidemia, unspecified; I10 Essential (primary) hypertension; Z12.5 Encounter for screening for malignant neoplasm of prostate
CPT/HCPCS: 80048; 80061; 85025; G0103

== ENCOUNTER → 2025-04-09 09:48 | Outpatient (CLI) | payer MEDICARE, SELFPAY ==
[2025-04-09 18:56] LABS: Hematocrit 53.4 % (41-53); Hemoglobin 18.5 g/dL (13.5-17.5); Mean Corpuscular HGB Conc 34.6 % (30-36); Mean Corpuscular Hemoglobin 30.8 PG (26-34); Mean Corpuscular Volume 89.2 fL (80-100); Platelet Count 117 X10^3/uL (150-400)
[2025-04-09 19:00] LABS: HEMOLYSIS 29 (0-50); Iron 146 ug/dL (49-181)
[2025-04-09 19:05] LABS: Blood Urea Nitrogen 26 mg/dL (9-20); Calcium 9.3 mg/dL (8.4-10.2); Carbon Dioxide 31 mmol/L (22-32); Chloride 103 mmol/L (98-107); Cholesterol 125 mg/dL (140-199); Estimated Glomerular Filt Rate 56 mL/min (>60); Glucose 127 mg/dL (70-99); HDL Cholesterol 28 mg/dL (40-60); HEMOLYSIS 29 (0-50); Potassium 3.7 mmol/L (3.4-5.1); Sodium 142 mmol/L (137-145); Triglycerides 222 mg/dL (35-150)
[2025-04-09 19:11] LABS: Percent Iron Saturation 43 % (20-50); Total Iron Binding Capacity 336 ug/dL (261-462); Transferrin 276 mg/dL (206-381)
[2025-04-09 20:07] LABS: Folate > 20.0 ng/mL (2.76-20.0); Vitamin B12 933 pg/mL (239-931)
[2025-04-09 20:45] LABS: Band Neutrophils Percent 3.0 % (3-7); Eosinophils Percent Manual 1.0 % (2-4); Lymphocytes Percent Manual 23.0 % (25-45); Monocytes Percent Manual 3.0 % (2-11); Neutrophils Absolute Manual 6716 /uL (3000-5900); RBC Morphology Normal Morphology; Segmented Neutrophils Percent 70.0 % (38-70); Total Cells Counted 100
== END ==
PROVIDERS: PCP Family Medicine; Referring Provider Family Medicine; Visit Provider Family Medicine
DX: D75.1 Secondary polycythemia (principal); D69.6 Thrombocytopenia, unspecified
CPT/HCPCS: 80048; 80061; 81270; 82607; 82746; 83540; 83550; 85025